=== PATIENT | male | born 1930 | race American Indian/Alaskan Native ===

== ENCOUNTER 2016-11-09 05:25 | Emergency (ER) | payer MEDICARE ==
[2016-11-09 10:17] LABS: Basophils % (Auto) 0.5 % (0.0-1.8); Eosinophils % (Auto) 0.7 % (0.0-4.3); Hematocrit 40.9 % (35.5-45.6); Hemoglobin 13.5 gm/dl (11.8-15.2); Mean Corpuscular HGB Conc 33 % (32-34); Mean Corpuscular Hemoglobin 29 pg (28-32); Mean Corpuscular Volume 87 fl (84-94); Platelet Count 169 K/mm3 (140-440); Red Blood Count 4.69 M/mm3 (3.65-5.03); White Blood Count 3.9 K/mm3 (4.5-11.0)
[2016-11-09 10:24] LABS: Anion Gap 17 mmol/L; BUN/Creatinine Ratio 12.85; Blood Urea Nitrogen 9 mg/dL (9-20); Carbon Dioxide 26 mmol/L (22-30); Chloride 103.3 mmol/L (98-107); Glucose 110 mg/dL (75-100); Potassium 4.1 mmol/L (3.6-5.0); Sodium 142 mmol/L (137-145)
[2016-11-09 10:25] LABS: Bacteria,Urine 1+ /HPF (Negative); Bilirubin,Urine NEG (Negative); Blood,Urine MOD (Negative); Ketones,Urine TR mg/dL (Negative); Leukocyte Esterase,Urine LG (Negative); Nitrite,Urine NEG (Negative); Protein,Urine <15 mg/dL mg/dL (Negative); Urobilinogen,Urine < 2.0 mg/dL (<2.0)
[2016-11-09] MEDS ORDERED: BACTRIM DS PO ONE (11:57)
--- NOTE | 2016-11-09 11:58 | Emergency Department Report ---
ED Male HPI - General Chief complaint: Urogenital-Male Stated complaint: BLOOD IN URINE Time Seen by Provider: 11/09/16 11:52 Source: patient Mode of arrival: Ambulatory Limitations: No Limitations - History of Present Illness Initial comments: This is a pleasant 86-year-old woman who reports dysuria since Thursday. He started noticing hematuria yesterday. He had similar approximately one year ago. He was placed on an antibiotic at that time. He does report history of prostate cancer he currently has radioactive seeds in his prostate injected she denies any fevers denies any nausea or vomiting. States he is feeling well otherwise. His been drinking plenty of fluids. States since arriving in the ED. He's had 3 times with micturition. He is only noted blood on one of these occasions. Radiation: none Severity: moderate Consistency: intermittent Improves with: none Worsens with: urination - Related Data Home Medications Medication Instructions Recorded Confirmed Last Taken amLODIPine [Norvasc] 5 mg PO DAILY 11/09/16 11/09/16 11/09/16 Previous Rx's Medication Instructions Recorded Last Taken Type Sulfamethoxazole/Trimethoprim 1 each PO BID #14 tablet 11/09/16 Unknown Rx [Bactrim DS TAB] Allergies Allergy/AdvReac Type Severity Reaction Status Date / Time No Known Allergies Allergy Unverified 11/09/16 09:38 ED Review of Systems ROS: Stated complaint: BLOOD IN URINE Other details as noted in HPI Comment: All other systems reviewed and negative Constitutional: denies: chills, fever Eyes: denies: eye pain, eye discharge, vision change ENT: denies: ear pain, throat pain Respiratory: denies: cough, shortness of breath, wheezing Cardiovascular: denies: chest pain, palpitations Endocrine: no symptoms reported Gastrointestinal: denies: abdominal pain, nausea, diarrhea Genitourinary: urgency, dysuria, frequency, hematuria. denies: discharge, testicular pain, testicular mass Musculoskeletal: denies: back pain, joint swelling, arthralgia Skin: denies: rash, lesions Neurological: denies: headache, weakness, paresthesias Psychiatric: denies: anxiety, depression Hematological/Lymphatic: denies: easy bleeding, easy bruising ED Past Medical Hx - Past Medical History Previous Medical History?: Yes Hx of Cancer: Yes (prostate) Additional medical history: Enlarged prostate - Surgical History Past Surgical History?: Yes Additional Surgical History: Prostates surgery with I-25 seed implants, Bladder tumor removed - Social History Smoking Status: Never Smoker Substance Use Type: Prescribed - Medications Home Medications: Home Medications Medication Instructions Recorded Confirmed Last Taken Type Sulfamethoxazole/Trimethoprim 1 each PO BID #14 tablet 11/09/16 Unknown Rx [Bactrim DS TAB] amLODIPine [Norvasc] 5 mg PO DAILY 11/09/16 11/09/16 11/09/16 History ED Physical Exam - General Limitations: No Limitations General appearance: alert, in no apparent distress - Head Head exam: Present: atraumatic, normocephalic - Eye Eye exam: Present: normal appearance. Absent: scleral icterus - ENT ENT exam: Present: mucous membranes moist - Neck Neck exam: Present: normal inspection - Respiratory Respiratory exam: Present: normal lung sounds bilaterally. Absent: respiratory distress - Cardiovascular Cardiovascular Exam: Present: regular rate, normal rhythm. Absent: systolic murmur, diastolic murmur, rubs, gallop - GI/Abdominal GI/Abdominal exam: Present: soft, normal bowel sounds. Absent: distended, tenderness, guarding - Rectal Rectal exam: Present: deferred - Extremities Exam Extremities exam: Present: normal inspection - Back Exam Back exam: Present: normal inspection, full ROM. Absent: CVA tenderness (R), CVA tenderness (L) - Neurological Exam Neurological exam: Present: alert, oriented X3 - Psychiatric Psychiatric exam: Present: normal affect, normal mood - Skin Skin exam: Present: warm, dry, intact, normal color. Absent: rash ED Course Vital Signs 11/09/16 11/09/16 11/09/16 09:38 11:45 12:25 Temperature 98.5 F Pulse Rate 65 61 Respiratory 18 18 18 Rate Blood Pressure 129/75 Blood Pressure 131/75 [Left] O2 Sat by Pulse 100 97 99 Oximetry - Reevaluation(s) Reevaluation #1: 11/09/16 12:01 Patient is well-appearing here. His blood tests are noted. Normal hemoglobin is noted. Elect to lites are unremarkable as well. Patient is noted to have infection in the urine. With 100 white blood cells. Associated red blood cells are noted as well there are markers for leukocyte esterase as well. For culture. Will start on Bactrim here. He is otherwise well-appearing. Do not feel this is complicated by 4:00 that he is male. We will trial of outpatient therapy. ED Medical Decision Making - Lab Data Result diagrams: 11/09/16 09:55 11/09/16 09:55 Critical care attestation.: If time is entered above; I have spent that time in minutes in the direct care of this critically ill patient, excluding procedure time. ED Disposition Clinical Impression: Hemorrhagic cystitis Disposition: DISCHARGED TO HOME OR SELFCARE Is pt being admited?: No Does the pt Need Aspirin: No Condition: Stable Instructions: Urinary Tract Infection in Men (ED) Additional Instructions: Drink plenty of fluids Prescriptions: Sulfamethoxazole/Trimethoprim [Bactrim DS TAB] 1 each PO BID #14 tablet Referrals: PRIMARY CARE, [Primary Care Provider] - 3-5 Days Time of Disposition: 11:58
[2016-11-09 13:02] VITALS: BP 131/75
== END 2016-11-09 12:25 | disposition home or self-care (01) ==
LOC: ED 05:25
DX: N30.91 Cystitis, unspecified with hematuria (principal); Z85.46 Personal history of malignant neoplasm of prostate
CPT/HCPCS: 36415; 80048; 81001; 85025; 87076; 87086; 87186; 99283

== ENCOUNTER 2018-10-07 18:36 | Emergency (ER) | payer MEDICARE ==
--- NOTE | 2018-10-07 19:09 | Emergency Department Report ---
Blank Doc - Documentation Documentation: Blood in urine time 1 week. This initial assessment diagnostic orders/clinical plan/treatment (s) is/Are subject change based on patient's health status, clinical progression and re- assessment by fellow clinical providers in the ED. Further treatment and work-up at subsequent clinical providers discretion. Patient/guardians urged not to elope from their condition may be serious if not clinically assessed and managed. Initial order include:
[2018-10-07 20:23] LABS: Bilirubin,Urine NEG (Negative); Blood,Urine LG (Negative); Color,Urine Straw (Yellow); Protein,Urine <15 mg/dL mg/dL (Negative); Urobilinogen,Urine < 2.0 mg/dL (<2.0)
--- NOTE | 2018-10-07 20:37 | Emergency Department Report ---
ED Male HPI - General Chief complaint: Urogenital-Male Stated complaint: CLOTS IN URINE/SINUS FLARE UP Time Seen by Provider: 10/07/18 20:11 Source: patient Mode of arrival: Ambulatory Limitations: No Limitations - History of Present Illness Initial comments: 87 yo male presents with hematuria since this afternoon. Patient denies difficulty urinating, urinary frequency, fever or abdominal pain. Patient states this happened approximately one year ago, and he was diagnosed with UTI. Patient also reports that he has had nasal congestion, postnasal drip, and cough for the last few days for which he has been taking Mucinex. MD Complaint: other (hematuria) -: This afternoon Location: penis Radiation: none Severity: mild Consistency: intermittent Improves with: none Worsens with: urination denies: urinary retention, dysuria, fever, nausea/vomiting, incontinence - Related Data Home Medications Medication Instructions Recorded Confirmed Last Taken amLODIPine [Norvasc] 5 mg PO DAILY 11/09/16 11/09/16 11/09/16 Previous Rx's Medication Instructions Recorded Last Taken Type Sulfamethoxazole/Trimethoprim 1 each PO BID #14 tablet 11/09/16 Unknown Rx [Bactrim DS TAB] Benzonatate [Tessalon Perles] 100 mg PO Q8HR PRN #20 capsule 10/07/18 Unknown Rx Ciprofloxacin HCl [Cipro] 500 mg PO BID #10 tablet 10/07/18 Unknown Rx Fluticasone [Flonase] 1 spray NS QDAY #1 bottle 10/07/18 Unknown Rx Loratadine [Claritin] 10 mg PO DAILY #30 tablet 10/07/18 Unknown Rx Allergies Allergy/AdvReac Type Severity Reaction Status Date / Time No Known Allergies Allergy Verified 10/07/18 18:52 ED Review of Systems ROS: Stated complaint: CLOTS IN URINE/SINUS FLARE UP Other details as noted in HPI Comment: All other systems reviewed and negative Constitutional: denies: chills, fever ENT: congestion Respiratory: cough Gastrointestinal: denies: abdominal pain, nausea, vomiting Genitourinary: hematuria. denies: dysuria, frequency ED Past Medical Hx - Past Medical History Previous Medical History?: Yes Additional medical history: Enlarged prostate - Surgical History Past Surgical History?: Yes Additional Surgical History: Prostates surgery with I-25 seed implants, Bladder tumor removed - Social History Smoking Status: Never Smoker Substance Use Type: None - Medications Home Medications: Home Medications Medication Instructions Recorded Confirmed Last Taken Type Sulfamethoxazole/Trimethoprim 1 each PO BID #14 tablet 11/09/16 Unknown Rx [Bactrim DS TAB] amLODIPine [Norvasc] 5 mg PO DAILY 11/09/16 11/09/16 11/09/16 History Benzonatate [Tessalon Perles] 100 mg PO Q8HR PRN #20 capsule 10/07/18 Unknown Rx Ciprofloxacin HCl [Cipro] 500 mg PO BID #10 tablet 10/07/18 Unknown Rx Fluticasone [Flonase] 1 spray NS QDAY #1 bottle 10/07/18 Unknown Rx Loratadine [Claritin] 10 mg PO DAILY #30 tablet 10/07/18 Unknown Rx ED Physical Exam - General Limitations: No Limitations General appearance: alert, in no apparent distress - Head Head exam: Present: atraumatic, normocephalic - Eye Eye exam: Present: normal appearance - ENT ENT exam: Present: mucous membranes moist - Neck Neck exam: Present: normal inspection - Respiratory Respiratory exam: Present: normal lung sounds bilaterally. Absent: respiratory distress - Cardiovascular Cardiovascular Exam: Present: regular rate, normal rhythm - GI/Abdominal GI/Abdominal exam: Present: soft. Absent: distended, tenderness - Extremities Exam Extremities exam: Present: normal inspection - Neurological Exam Neurological exam: Present: alert, oriented X3 - Psychiatric Psychiatric exam: Present: normal affect, normal mood - Skin Skin exam: Present: warm, dry, intact, normal color ED Course Vital Signs 10/07/18 18:52 Temperature 98 F Pulse Rate 87 Respiratory 18 Rate Blood Pressure 159/73 O2 Sat by Pulse 98 Oximetry Critical care attestation.: If time is entered above; I have spent that time in minutes in the direct care of this critically ill patient, excluding procedure time. ED Disposition Clinical Impression: Hematuria, Rhinitis Disposition: DC-01 TO HOME OR SELFCARE Is pt being admited?: No Condition: Stable Instructions: Acute Hematuria (ED) Prescriptions: Benzonatate [Tessalon Perles] 100 mg PO Q8HR PRN #20 capsule PRN Reason: Cough Ciprofloxacin HCl [Cipro] 500 mg PO BID #10 tablet Fluticasone [Flonase] 1 spray NS QDAY #1 bottle Loratadine [Claritin] 10 mg PO DAILY #30 tablet Referrals: BRIANNA CROWE MD [Staff Physician] - 3-5 Days Time of Disposition: 20:40
[2018-10-07 21:07] VITALS: BP 152/71
== END 2018-10-07 21:07 | disposition home or self-care (01) ==
LOC: ED 18:36
DX: R31.9 Hematuria, unspecified (principal); J31.0 Chronic rhinitis; R05 Cough; Z98.890 Other specified postprocedural states
CPT/HCPCS: 81001

== ENCOUNTER 2019-11-01 16:07 | Emergency (ER) | payer MEDICARE ==
[2019-11-01 16:14] VITALS: BP 138/75
--- NOTE | 2019-11-01 17:04 | Event Note ---
ED Screening Note Date of service: 11/01/19 Time: 16:38 ED Screening Note: This initial assessment/diagnostic orders/clinical plan/treatment(s) is/are subject to change based on patients health status, clinical progression and re- assessment by fellow clinical providers in the ED. Further treatment and workup at subsequent clinical providers discretion. Patient/guardian urged not to elope from the ED as their condition may be serious if not clinically assessed and managed. Initial orders include: 88yo male states that he has penis discomfort with stinging pain x 2 days. He further states that he sometimes see blood.
[2019-11-01 17:05] LABS: Bacteria,Urine 1+ /HPF (Negative); Bilirubin,Urine NEG (Negative); Blood,Urine LG (Negative); Color,Urine Yellow (Yellow); Urobilinogen,Urine < 2.0 mg/dL (<2.0)
[2019-11-01 17:06] LABS: RBC,Urine > 182.0 /HPF (0.0-6.0); WBC,Urine > 182.0 /HPF (0.0-6.0)
--- NOTE | 2019-11-01 18:06 | Emergency Department Report ---
<PASQUALE LEO - Last Filed: 11/01/19 18:10> ED General Adult HPI - General Chief complaint: Urogenital-Male Stated complaint: UTI Time Seen by Provider: 11/01/19 16:37 - Related Data Home Medications Medication Instructions Recorded Confirmed Last Taken amLODIPine [Norvasc] 5 mg PO DAILY 11/09/16 11/09/16 11/09/16 Previous Rx's Medication Instructions Recorded Last Taken Type Benzonatate [Tessalon Perles] 100 mg PO Q8HR PRN #20 capsule 10/07/18 Unknown Rx Fluticasone [Flonase] 1 spray NS QDAY #1 bottle 10/07/18 Unknown Rx Loratadine (Nf) [Claritin] 10 mg PO DAILY #30 tablet 10/07/18 Unknown Rx Sulfamethoxazole/Trimethoprim 1 each PO BID #14 tablet 11/01/19 Unknown Rx [Bactrim DS TAB] Allergies Allergy/AdvReac Type Severity Reaction Status Date / Time No Known Allergies Allergy Verified 10/07/18 18:52 ED Past Medical Hx - Medications Home Medications: Home Medications Medication Instructions Recorded Confirmed Last Taken Type amLODIPine [Norvasc] 5 mg PO DAILY 11/09/16 11/09/16 11/09/16 History Benzonatate [Tessalon Perles] 100 mg PO Q8HR PRN #20 capsule 10/07/18 Unknown Rx Fluticasone [Flonase] 1 spray NS QDAY #1 bottle 10/07/18 Unknown Rx Loratadine (Nf) [Claritin] 10 mg PO DAILY #30 tablet 10/07/18 Unknown Rx Sulfamethoxazole/Trimethoprim 1 each PO BID #14 tablet 11/01/19 Unknown Rx [Bactrim DS TAB] ED Disposition Clinical Impression: Hemorrhagic cystitis Disposition: DC-01 TO HOME OR SELFCARE Condition: Stable Instructions: Urinary Tract Infection in Men (ED) Additional Instructions: Take the antibiotics as directed. Do not take Motrin, ibuprofen, Naprosyn, Aleve, do not take alcohol. Take Tylenol as needed for pain every 4 hours. Cultures were sent today, and results will be available in the next 3 to 5 days. Please have your primary care doctor contact the medical records department to obtain culture results. Please follow-up with your primary care doctor or urologist within the next 5 days. Return to the emergency room right away with projectile vomiting, change in mental status, confusion, inability to tolerate liquid feeds, back pain, flank pain, abdominal pain, change in mental status, or new, worsened or different symptoms not present on the initial emergency room evaluation. Prescriptions: Sulfamethoxazole/Trimethoprim [Bactrim DS TAB] 1 each PO BID #14 tablet Referrals: BETTYE KINGSTON MD [Primary Care Provider] - 3-5 Days [facility] [Provider Group] - 3-5 Days <YASH RYAN - Last Filed: 11/01/19 22:00> ED General Adult HPI - General Source: patient, RN notes reviewed, old records reviewed Mode of arrival: Ambulatory Limitations: No Limitations - History of Present Illness Initial comments: The patient is an 88-year-old gentleman. He is not known to myself previously. Primary care doctor: Dr. Collins Urology: Dr. Pollock, and [facility]. The patient has a history of culture proven hemorrhagic cystitis. He has been seen at this hospital in the past for similar issues. In 2017 he presented to the ER with hemorrhagic cystitis, had cultures demonstrating E. coli, ESBL, sensitive to Bactrim, tetracycline, Macrobid. Today, the patient presents to the ER with a few days of painless hematuria. It has been going on for a couple of days. There is no headache, neck pain, chest pain, back pain, abdominal pain, testicular pain, nausea vomiting, fever or chills. He denies cough, and he denies confirmed exposure to coronavirus. He contacted his private urologist a few days ago, and he reports that they were trying to accommodate him with an appointment, but they have not been able to do so. He thus presented to the emergency room. He endorses intermittent urinating clots. He states he is not taking blood thinning medications. There is no hematemesis or bright red blood per rectum. -: days(s) Severity scale (0 -10): 0 Consistency: intermittent Improves with: none Worsens with: none Associated Symptoms: denies other symptoms ED Review of Systems ROS: Stated complaint: UTI Other details as noted in HPI Comment: All other systems reviewed and negative Genitourinary: as per HPI, hematuria. denies: discharge, testicular pain, testicular mass Musculoskeletal: denies: back pain ED Past Medical Hx - Past Medical History Additional medical history: Enlarged prostate - Surgical History Additional Surgical History: Prostates surgery with I-25 seed implants, Bladder tumor removed - Social History Smoking Status: Never Smoker Substance Use Type: None ED Physical Exam - General Limitations: No Limitations General appearance: alert, in no apparent distress - Head Head exam: Present: atraumatic, normocephalic - Eye Eye exam: Present: normal appearance, EOMI - ENT ENT exam: Present: normal exam, normal orophraynx, mucous membranes moist, normal external ear exam - Neck Neck exam: Present: normal inspection, full ROM. Absent: tenderness, meningismus - Respiratory Respiratory exam: Present: normal lung sounds bilaterally. Absent: respiratory distress - Cardiovascular Cardiovascular Exam: Present: regular rate, normal rhythm, normal heart sounds. Absent: bradycardia, tachycardia, irregular rhythm, systolic murmur, diastolic murmur, rubs, gallop - GI/Abdominal GI/Abdominal exam: Present: soft, normal bowel sounds. Absent: distended, tenderness, guarding, rebound, rigid, pulsatile mass - Rectal Rectal exam: Present: deferred - exam: Present: normal inspection, other (chaperoned by shira wadsworth). Absent: testicular tenderness External exam: Present: normal external exam (There is normal testicular lie. There is normal cremasteric reflex. There is no testicular tenderness. There is no testicular swelling) - Extremities Exam Extremities exam: Present: normal inspection, full ROM - Back Exam Back exam: Present: normal inspection, full ROM. Absent: tenderness, CVA tenderness (R), CVA tenderness (L), paraspinal tenderness, vertebral tenderness - Neurological Exam Neurological exam: Present: alert, normal gait, other (There is no facial droop. The tongue is midline. Extraocular movements are intact bilaterally. There is 5 out of 5 strength in bilateral upper and lower extremities. Sensation is intact to light touch bilateral upper and lower extremities. There is a normal gait.). Absent: motor sensory deficit - Psychiatric Psychiatric exam: Present: normal affect, normal mood - Skin Skin exam: Present: warm, dry, intact, normal color. Absent: rash ED Course Vital Signs 11/01/19 16:12 Temperature 98.4 F Pulse Rate 94 H Respiratory 14 Rate Blood Pressure 138/75 [Left] O2 Sat by Pulse 98 Oximetry ED Medical Decision Making - Lab Data Vital Signs 03/24/20 16:12 Temperature 98.4 F Pulse Rate 94 H Respiratory 14 Rate Blood Pressure 138/75 [Left] O2 Sat by Pulse 98 Oximetry - Medical Decision Making Differential diagnosis, including not limited to: Hemorrhagic cystitis, urinary tract infection Assessment and plan: 88-year-old gentleman who is presented in the past to this department with hemorrhagic cystitis, presenting with probable reoccurrence of hemorrhagic cystitis. He is afebrile with reassuring vital signs, with no back pain, flank pain, nausea, vomiting or abdominal pain, there is no complains of dyschezia, this is very unlikely to be pyelonephritis, this is unlikely to be prostatitis. We do not have cultures since 2017. Old culture results are reviewed and appreciated. Patient will be started empirically on Bactrim. He is instructed to follow-up with his outpatient urologist or primary care doctor. Return precautions are reviewed. He verbalizes understanding. He is currently afebrile with reassuring vital signs, with a benign and unremarkable physical examination. He is suitable for trial of outpatient management. Critical care attestation.: If time is entered above; I have spent that time in minutes in the direct care of this critically ill patient, excluding procedure time. ED Disposition Is pt being admited?: No Does the pt Need Aspirin: No
== END 2019-11-01 18:27 | disposition home or self-care (01) ==
LOC: ED 16:07
DX: N30.91 Cystitis, unspecified with hematuria (principal)
CPT/HCPCS: 81001; 87086; 99283